=== PATIENT | male | born 1970 | race Caucasian/White ===

== ENCOUNTER 2020-01-23 16:09 | Emergency (ER) | payer MEDICAID ==
[~2020-01-23] VITALS: Ht 177.8 cm; Wt 78.5 kg
[2020-01-23 16:14] VITALS: BP 133/85
[2020-01-23] MEDS ORDERED: NEOSPORIN OINT. PKT 1 PACKET ONE (16:35)
== END 2020-01-23 16:57 | disposition home or self-care (01) ==
LOC: ED 16:50
DX: L03.113 Cellulitis of right upper limb (principal); M79.641 Pain in right hand; L24.9 Irritant contact dermatitis, unspecified cause
CPT/HCPCS: 99283

== ENCOUNTER 2020-02-02 13:53 | Emergency (ER) | payer MEDICAID ==
[~2020-02-02] VITALS: Ht 180.3 cm; Wt 80.3 kg
[2020-02-02 14:27] VITALS: BP 150/102
--- NOTE | 2020-02-02 14:43 | NUR ---
PT AMBULATORY TO [facility] FROM TRIAGE WITH STEADY GAIT. NAD NOTED. RESP REGULAR AND UNLABORED. PA AT BEDSIDE FOR EVALUATION, AWAITING ORDERS. CALL LIGHT IN REACH. FALL PRECAUTIONS IN PLACE.
--- NOTE | 2020-02-02 15:06 | NUR ---
REPORT AND TRANSFER OF CARE TO [facility] AT THIS TIME. [facility] TO COMPLETE CLINICAL SCREEN.
[2020-02-02] MEDS ORDERED: LORA-247 PO (15:30)
== END 2020-02-02 16:05 | disposition home or self-care (01) ==
LOC: ED 15:15
DX: L30.9 Dermatitis, unspecified (principal)
CPT/HCPCS: 99283

== ENCOUNTER 2020-05-13 12:12 | Emergency (ER) | payer MEDICAID ==
[~2020-05-13] VITALS: Ht 180.3 cm; Wt 78.8 kg
[~2020-05-13 12:12] MED LIST: LORA-247 PO
[2020-05-13 12:15] VITALS: BP 145/98
--- NOTE | 2020-05-13 12:48 | NUR ---
CREAM REQUESTED FROM PHARMACY.
--- NOTE | 2020-05-13 13:07 | NUR ---
MED[facility] ADMIN PER JAN.
[2020-05-13] MEDS ORDERED: TRIAMCINOLONE CRM 0.1%, 15GM TP SCH (21:00)
== END 2020-05-13 13:25 | disposition home or self-care (01) ==
LOC: ED 13:05
DX: L30.9 Dermatitis, unspecified (principal); Z87.891 Personal history of nicotine dependence
CPT/HCPCS: 99283; J7512